=== PATIENT | male | born 1980 | race Two or more races ===

== ENCOUNTER 2021-03-31 21:03 | Emergency (ER) | payer SELFPAY | END 2021-04-01 01:00 | disposition left against medical advice (07) | LOC: ER 21:08 | DX: Z53.21 Procedure and treatment not carried out due to patient leaving prior to being seen by health care provider (principal) ==

== ENCOUNTER 2021-05-21 09:11 | Inpatient (IN) | payer OTHER ==
[~2021-05-21] VITALS: Ht 185.4 cm; Wt 110.2 kg
[2021-05-21] MEDS ORDERED: FURO-151 PO (09:16)
--- NOTE | 2021-05-21 09:20 | NUR ---
Paged Dr Lyle for urology consult.
[2021-05-21] MEDS ORDERED: MORPHINE SULFATE 4 MG/1 ML DISP.SYRIN IV ONE ×2 (09:30→10:30)
[2021-05-21] MEDS ORDERED: MORPHINE SULFATE 4 MG/1 ML DISP.SYRIN ONE ×3 (09:33→16:32)
--- NOTE | 2021-05-21 09:39 | NUR ---
Patient out of unit for ct scan via gurny.
[2021-05-21 09:40] LABS: HEMATOCRIT 38.3 % (36.7-47.1); MEAN CORPUSCULAR HEMOGLOBIN 27.9 uug (23.8-33.4); MEAN CORPUSCULAR VOLUME 86.2 fL (73.0-96.2); PLATELET COUNT (AUTO) 305 K/uL (152-348)
[2021-05-21 09:47] LABS: CREATININE 0.9 mg/dL (0.6-1.3); POTASSIUM 4.3 mmol/L (3.5-5.1)
--- NOTE | 2021-05-21 09:56 | NUR ---
Dr Lyle has not returned call. Repaged him.
--- NOTE | 2021-05-21 09:58 | NUR ---
Patient back from ct scan with no distress noted.
--- NOTE | 2021-05-21 10:06 | NUR ---
assistive technology trainer into to do procedure.
--- NOTE | 2021-05-21 10:23 | NUR ---
Dr Chan spoke with Dr Lyle for urology consult.
[2021-05-21] MEDS ORDERED: FUROSEMIDE 40 MG/4 ML VIAL IV ONE (10:30)
[2021-05-21] MEDS ORDERED: NITROGLYCERIN OINT 1 GM PACKET TP ONE ×2 (10:30→10:36)
[2021-05-21] MEDS ORDERED: FUROSEMIDE 40 MG/4 ML VIAL ONE (10:37)
--- NOTE | 2021-05-21 11:20 | NUR ---
Patient urinated 400ml of clear yellow urine in urinal.
[2021-05-21 11:28] LABS: BILIRUBIN,DIRECT 1.7 mg/dL (0.0-0.2); BILIRUBIN,TOTAL 2.7 mg/dL (0.2-1.0); TOTAL PROTEIN, SERUM 7.7 g/dL (6.4-8.2)
--- NOTE | 2021-05-21 12:32 | NUR ---
Dr Malone accepted patient has in patient Tele.
[2021-05-21] MEDS ORDERED: MORPHINE SULFATE 4 MG/1 ML DISP.SYRIN IV PRN (16:15)
--- NOTE | 2021-05-21 16:27 | NUR ---
Patient had in his possession $5.00x1; $10.00x1; $20.00x71; $50.00x17 and $100.00x6. Patient refused to have any valuable placed in safe.
--- NOTE | 2021-05-21 16:32 | NUR ---
Colin jones in ED - 05/21/21 at 1632 by [email or web address] Total urine output in the ER was 2200 of clear yellow urine.
--- NOTE | 2021-05-21 16:32 | NUR ---
Total urine output in the ER was 2200 ML of clear yellow urine.
--- NOTE | 2021-05-21 16:42 | NUR ---
Transfered to 3rd floor Tele via gurny with no distress noted.
--- NOTE | 2021-05-21 16:45 | NUR ---
Patient received from ER via gurney, alert and oriented x4. Patient has swollen penis/scrotum and swollen b/l lower extremities. Refuses all pictures at this time. No c/o pain at this time because patient given morphine before transfer to our floor from ER. Sinus tachycardic on monitor with HR around low 100s at this time. Left hand IV patent with no redness or swelling noted. On RA with no SOB or difficulties breathing. No acute distress noted. Patient has alot of howard, which was documented appropriately on belongings list, and he refuses to put it in the safe. MD aware of patient's arrival. Patient states he feels he will withdraw soon from cocaine/heroine/meth use. MD aware. Personal belongings and call light within easy reach. Will continue to monitor.
[2021-05-21 17:00] VITALS: BP 126/89
[2021-05-21] MEDS ORDERED: ACETAMINOPHEN 325 MG TABLET PO PRN (17:15)
[2021-05-21] MEDS ORDERED: ONDANSETRON 4 MG/2 ML VIAL IV PRN (17:15)
[2021-05-21] MEDS ORDERED: HYDROCODONE/APAP 5-325MG TABLET PO PRN (17:15)
[2021-05-21] MEDS: HYDROMORPHONE 1 MG/1 ML DISP.SYRIN IV PRN ×2 (17:57→20:58)
[2021-05-21] MEDS ORDERED: CEFTRIAXONE 1 G in IV DEXTROSE 5% 50 ML IV SCH (18:15)
[2021-05-21] MEDS ORDERED: LEVALBUTEROL HCL NEB 0.63 MG/3 ML NEBU NEB PRN (18:15)
--- NOTE | 2021-05-21 19:55 | NUR ---
pt seen by dr calhoun pt refused to do put the folly catheter
[2021-05-21] MEDS: NICOTINE 7 MG/24HR PATCH TD SCH (19:58)
[2021-05-21 20:10] VITALS: BP 123/82
[2021-05-21] MEDS ORDERED: FUROSEMIDE 40 MG/4 ML VIAL IV SCH (21:00)
[2021-05-22] VITALS: BP 125/86
[2021-05-22] MEDS: HYDROMORPHONE 1 MG/1 ML DISP.SYRIN IV PRN ×3 (01:09→08:57)
[2021-05-22 04:15] VITALS: BP 126/99
[2021-05-22] MEDS ORDERED: PANTOPRAZOLE SODIUM 40 MG TABLET.DR PO SCH (07:00)
[2021-05-22] MEDS ORDERED: BUMETANIDE 1 MG/4 ML VIAL IV ONE (08:15)
[2021-05-22] MEDS: NICOTINE 7 MG/24HR PATCH TD SCH (08:15)
[2021-05-22] MEDS ORDERED: SPIRONOLACTONE 50 MG TABLET PO SCH (09:00)
[2021-05-22] MEDS ORDERED: BUME2TAB7 PO (09:59)
[2021-05-22] MEDS ORDERED: SPIR50TA PO (09:59)
[2021-05-22] MEDS ORDERED: CEPH500C2 PO (09:59)
[2021-05-22 11:16] VITALS: BP 136/97
--- NOTE | 2021-05-22 12:59 | NUR ---
Patient discharge around 1215pm, in stable condition. Patient drive car to home. Refuse transportation assistance despite of encouragement. no c/o of pain/discomfort prior discharge. Patient IV access remove. Discharge summary and prescription explain and given to patient.
== END 2021-05-22 12:02 | disposition home or self-care (01) | DRG 194 ==
LOC: ER 09:11 → TELE3 16:10
PROVIDERS: ADMIT Internal Medicine; ATTEND Internal Medicine
DX: I50.21 Acute systolic (congestive) heart failure (principal); I27.20 Pulmonary hypertension, unspecified; L03.115 Cellulitis of right lower limb; I42.0 Dilated cardiomyopathy; L03.116 Cellulitis of left lower limb; R18.8 Other ascites; Z20.822 Contact with and (suspected) exposure to COVID-19; Z91.19 Patient's noncompliance with other medical treatment and regimen; R16.1 Splenomegaly, not elsewhere classified; N49.2 Inflammatory disorders of scrotum; I87.8 Other specified disorders of veins; I07.1 Rheumatic tricuspid insufficiency; K74.60 Unspecified cirrhosis of liver; J45.909 Unspecified asthma, uncomplicated; F17.210 Nicotine dependence, cigarettes, uncomplicated; F11.13 Opioid abuse with withdrawal
CPT/HCPCS: 36415; 70030-TC; 71045; 76870; 83605; 85025; 86140; 87040; 93005; 93307; A9150; G0378; J0696; J1170; J1940; J2270; J3490; J7050; J7060